=== PATIENT | female | born 1950 | race Caucasian/White ===

== ENCOUNTER → 2016-08-22 | Outpatient (CLI) | payer MEDICARE ==
[~2016-08-22] MED LIST: ALBU6.7H INH; ATEN1TAB73 PO; EPIP0.3I IM; EZET10 PO; MELO15TA2 PO
[2016-08-22 13:46] LABS: ALKALINE PHOSPHATASE 72 U/L (45-117); ALT (GPT) 26 U/L (10-53); ANION GAP 5 MEQ/L (5-15); AST (GOT) 15 U/L (15-37); BICARBONATE 32.2 MEQ/L (21.0-32.0); BLOOD UREA NITROGEN 19 MG/DL (7-18); CHLORIDE 103 MEQ/L (98-107); GLOMERULAR FILTRATION RATE 52 ML/MIN (>89); GLUCOSE,FASTING 84 MG/DL (74-99); HDL CHOLESTEROL 56.6 MG/DL (40.0-60.0); LDL CHOLESTEROL 102 MG/DL (0-99); POTASSIUM 4.3 MEQ/L (3.5-5.1); SODIUM (NA) 140 MEQ/L (136-145); TOTAL BILIRUBIN ADULT 0.6 MG/DL (0.2-1.0)
[2016-08-22 13:47] LABS: CREATINE KINASE 88 U/L (26-192)
== END ==
LOC: PLAB 11:39
PROVIDERS: ATTEND Internal Medicine Interventional Cardiology
DX: R06.09 Other forms of dyspnea (principal); I10 Essential (primary) hypertension; I42.2 Other hypertrophic cardiomyopathy; E78.2 Mixed hyperlipidemia; R00.0 Tachycardia, unspecified; I47.1 Supraventricular tachycardia; Z68.32 Body mass index [BMI] 32.0-32.9, adult
CPT/HCPCS: 36415; 80053; 80061; 82550

== ENCOUNTER 2017-03-12 15:00 | Emergency (ER) | payer MEDICARE ==
[~2017-03-12] VITALS: Ht 160 cm; Wt 91.2 kg
[~2017-03-12 15:00] MED LIST changes: +ATEN-102 PO; +ECOT81TA2 PO; +LOVA40TA PO; +MOBI15TA PO
[2017-03-12 15:11] VITALS: BP 151/73; PULSE 59; RESP 18; TEMP 98.2; O2SAT 95
[2017-03-12] MEDS ORDERED: AMIO400T PO (15:17)
[2017-03-12] MEDS ORDERED: MOBI15TA PO (15:17)
[2017-03-12] MEDS ORDERED: AMLO2.5T PO (15:17)
[2017-03-12] MEDS ORDERED: LOVA40TA PO (15:17)
[2017-03-12] MEDS ORDERED: APIX5TAB PO (15:17)
[2017-03-12] MEDS ORDERED: BUPR150XL PO (15:18)
[2017-03-12] MEDS ORDERED: TYLETAB34 PO (15:32)
--- NOTE | 2017-03-12 15:40 | PD ---
HPI Chief Complaint: Injury Time Seen by Provider: 15:21 Travel History International Travel<30 days: No Contact w/Intl Traveler<30days: No Traveled to known affect area: No History of Present Illness HPI 66-year-old female presents to the emergency room for evaluation of left knee pain that started yesterday. Patient states she misstepped out of her garage and felt immediate, sharp pain localized to the posterior left knee that radiates down her left leg. It has been constant since then especially if she straightens her leg or applies weight to the leg. She denies falling. No other injuries. Denies paresthesias. She took prescribed Mobic without any relief in symptoms. She also applied a knee splint significant relief. Her orthopedic surgeon is Dr. Luu. [facility] Past Medical History Hx Anticoagulant Therapy: Yes Arthritis: Yes Cardiovascular Problems: Yes Diabetes: No Diminished Hearing: No Hepatitis: Yes (WHEN PATIENT HAD MONO YEARS AGO) Hiatal Hernia: No Hypertension: Yes Medical other: Yes (ARTHRITIS) Immunizations Current: No Thyroid Disease: No Tetanus Vaccination: Unknown Influenza Vaccination: No ?: Not Menopausal: Yes Past Surgical History Section: Yes Gynecologic Surgery: Yes (2 C-SECTIONS, D&C) Hysterectomy: No Oral Surgery: Yes (TONSILLECTOMY) Pacemaker: No Tonsillectomy: Yes Other Surgery: Yes Social History Alcohol Use: Yes (OCC) Tobacco Use: No Substance Use: No Allergies-Medications (Allergen,Severity, Reaction): Coded Allergies: azithromycin (Unverified Allergy, Intermediate, rash/hives, 03/12/17) cephalexin (Unverified Allergy, Unknown, Rash, 03/12/17) latex (Unverified Allergy, Unknown, hives, 03/12/17) Reported Meds & Prescriptions Reported Meds & Active Scripts Active Tylenol-Codeine #3 (Acetaminophen-Codeine) 300-30 mg Tab 1-2 Tab PO Q6H PRN Reported Wellbutrin Xl 24 HR (Bupropion HCl) 150 Mg Tab 150 Mg PO DAILY Mobic (Meloxicam) 15 Mg Tab 15 Mg PO DAILY Lovastatin 40 Mg Tab 40 Mg PO DAILY Eliquis (Apixaban) 5 Mg Tab 5 Mg PO BID Amiodarone (Amiodarone HCl) 400 Mg Tab 400 Mg PO DAILY Amlodipine (Amlodipine Besylate) 2.5 Mg Tab 2.5 Mg PO DAILY Review of Systems Except as stated in HPI: all other systems reviewed are Neg Physical Exam Narrative GENERAL: Well-nourished, well-developed female in no acute distress. Afebrile. Ambulatory. SKIN: Focused skin assessment warm/dry. No erythema or ecchymosis of the left knee. HEAD: Normocephalic. EYES: No scleral icterus. No injection or drainage. NECK: Supple, trachea midline. No JVD or lymphadenopathy. CARDIOVASCULAR: Regular rate and rhythm without murmurs, gallops, or rubs. RESPIRATORY: Breath sounds equal bilaterally. No accessory muscle use. MUSCULOSKELETAL: No cyanosis. No obvious edema. 2+ dorsalis pedis pulse. Full flexion of the left knee. Patient could not fully extend secondary to pain. Data Data Last Documented VS Vital Signs Date Time Temp Pulse Resp B/P (MAP) Pulse Ox O2 Delivery O2 Flow Rate FiO2 03/12/17 15:11 98.2 59 18 151/73 (99) 95 MDM Medical Decision Making Medical Screen Exam Complete: Yes Emergency Medical Condition: Yes Medical Record Reviewed: Yes Differential Diagnosis Sprain, internal derangement, fracture, dislocation Narrative Course 66-year-old female presents to the emergency room for evaluation of left knee pain after twisting injury yesterday. Patient denied actually fall. Left lower extremity is neurovascularly intact with 2+ dorsalis pedis pulse. There is no obvious edema, effusion, ecchymosis, or erythema. She has full flexion but limited extension secondary to pain. Without bony tenderness, there is no indication for x-ray imaging. Patient was informed she may need outpatient MRI if symptoms persist to evaluate for internal derangement. She was offered crutches and Endy wrap but declined. She'll be discharged with prescription for Tylenol 3. Patient told to follow-up with Dr. Luu next week or return for worsening symptoms. She understands and agrees to plan. Diagnosis Primary Impression: Internal derangement of left knee Referrals: Primary Care Physician Additional Instructions: Rest and drink plenty of fluids. Take Tylenol 3 as directed, as needed for pain. Do not drink alcohol or drive while taking this medication. Apply ice to the affected area for 20 minutes at a time, as needed for pain and swelling. Follow-up with your orthopedic surgeon. Return to the emergency room for worsening symptoms. Med/Other Pt SpecificInfo: Prescription(s) given Scripts Acetaminophen-Codeine (Tylenol-Codeine #3) 300-30 mg Tab 1-2 TAB PO Q6H Y for PAIN, #15 TAB 0 Refills Prov: Jatinder Lyles MD 03/12/17 Disposition: 01 DISCHARGE HOME Condition: Stable Paula Gamez Mar 12, 2017 15:40
== END 2017-03-12 16:12 | disposition home or self-care (01) ==
LOC: PHEFT 15:00
DX: M23.92 Unspecified internal derangement of left knee (principal); I10 Essential (primary) hypertension; Z79.01 Long term (current) use of anticoagulants; Z87.39 Personal history of other diseases of the musculoskeletal system and connective tissue; Z86.79 Personal history of other diseases of the circulatory system
CPT/HCPCS: 99283

== ENCOUNTER → 2017-08-07 | Outpatient (CLI) | payer MEDICARE ==
[~2017-08-07] MED LIST changes: -ALBU6.7H INH; +AMIO400T PO; +AMLO2.5T PO; +APIX5TAB PO; -ATEN-102 PO; -ATEN1TAB73 PO; +BUPR150XL PO; -ECOT81TA2 PO; -EPIP0.3I IM; -EZET10 PO; -MELO15TA2 PO; +TYLETAB34 PO
[2017-08-07 14:00] LABS: ALBUMIN 3.6 GM/DL (3.4-5.0); AST (GOT) 19 U/L (15-37); BICARBONATE 34.5 MEQ/L (21.0-32.0); BLOOD UREA NITROGEN 20 MG/DL (7-18); CALCIUM 8.2 MG/DL (8.5-10.1); CHLORIDE 105 MEQ/L (98-107); CHOLESTEROL 172 MG/DL (120-200); CREATININE 0.89 MG/DL (0.50-1.00); GLOMERULAR FILTRATION RATE 63 ML/MIN (>89); GLUCOSE,FASTING 84 MG/DL (74-99); SODIUM (NA) 144 MEQ/L (136-145)
[2017-08-07 14:11] LABS: ALKALINE PHOSPHATASE 77 U/L (45-117); ALT (GPT) 20 U/L (10-53); CHOLESTEROL/ HDL RATIO 2.81 RATIO; FREE T4 1.07 NG/DL (0.76-1.46); HDL CHOLESTEROL 61.2 MG/DL (40.0-60.0); LDL CHOLESTEROL 98 MG/DL (0-99); TOTAL BILIRUBIN ADULT 0.4 MG/DL (0.2-1.0); TOTAL PROTEIN 6.9 GM/DL (6.4-8.2); TRIGLYCERIDES 64 MG/DL (42-150)
== END ==
LOC: PLAB 10:20
PROVIDERS: ATTEND Internal Medicine Interventional Cardiology
DX: I25.10 Atherosclerotic heart disease of native coronary artery without angina pectoris (principal); I10 Essential (primary) hypertension; E78.2 Mixed hyperlipidemia; I48.92 Unspecified atrial flutter; Z79.899 Other long term (current) drug therapy
CPT/HCPCS: 36415; 80053; 80061; 82550; 84439; 84443

== ENCOUNTER → 2017-09-08 | Outpatient (CLI) | payer MEDICARE ==
[2017-09-08 14:19] LABS: CREATININE 1.2 MG/DL (0.50-1.00)
== END ==
LOC: PLAB 13:04
PROVIDERS: ATTEND Internal Medicine Interventional Cardiology
DX: I10 Essential (primary) hypertension (principal)
CPT/HCPCS: 36415; 82565; 84132; 84295; 84520

== ENCOUNTER → 2017-11-19 | Outpatient (CLI) | payer MEDICARE ==
[2017-11-19 18:21] LABS: CREATININE 1.18 MG/DL (0.50-1.00)
== END ==
LOC: PLAB 15:45
PROVIDERS: ATTEND Internal Medicine Interventional Cardiology
DX: I10 Essential (primary) hypertension (principal)
CPT/HCPCS: 82565; 84132; 84295; 84520